=== PATIENT | female | born 1980 | race Caucasian/White ===

== ENCOUNTER 2016-11-06 18:32 | Emergency (ER) | payer BC ==
[2016-11-06 19:31] VITALS: BP 144/86
--- NOTE | 2016-11-06 19:46 | UC ---
Throat Pain/Nasal Dar HPI - HPI Summary HPI Summary: [address], PAIN WITH SWALLOWING AND BODY ACHES. SAW WHITE SPOTS ON HER TONSILS TODAY. PT IS . - History of Current Complaint Chief Complaint: UCRespiratory Stated Complaint: SORE THROAT Time Seen by Provider: 11/06/16 19:39 Hx Obtained From: Patient Hx Last Menstrual Period: PT STATES POSSIBILITY OF Onset/Duration: Gradual Onset, Lasting Days, Still Present Severity: Moderate Pain Intensity: 4 Pain Scale Used: 0-10 Numeric Cough: None Associated Signs & Symptoms: Positive: Negative - Allergies/Home Medications Allergies/Adverse Reactions: Allergies Allergy/AdvReac Type Severity Reaction Status Date / Time No Known Allergies Allergy Verified 11/06/16 19:31 Home Medications: Home Medications Ibuprofen TAB* [Advil TAB*] 600 mg PO PRN 11/06/16 [History] Loratadine [Claritin 10 MG CAP] 10 mg PO 11/06/16 [History] PMH/Surg Hx/FS Hx/Imm Hx Respiratory History: Asthma - Surgical History Surgical History: None - Family History Known Family History: Positive: None Negative: Hypertension - Social History Alcohol Use: None Substance Use Type: None Smoking Status (MU): Never Smoked Tobacco Have You Smoked in the Last Year: No - Immunization History Most Recent Influenza Vaccination: unknown Most Recent Tetanus Shot: 01/20/16 Most Recent Pneumonia Vaccination: has not received Review of Systems Constitutional: Chills ENT: Sore Throat Respiratory: Negative Cardiovascular: Negative Gastrointestinal: Negative Musculoskeletal: Myalgia All Other Systems Reviewed And Are Negative: Yes Physical Exam Triage Information Reviewed: Yes Appearance: Well-Appearing, No Pain Distress, Well-Nourished Vital Signs: Initial Vital Signs Temp 98.2 F 11/06/16 19:27 Pulse 136 11/06/16 19:27 Resp 16 11/06/16 19:27 BP 144/86 11/06/16 19:27 Pulse Ox 99 11/06/16 19:27 Vital Signs Reviewed: Yes Eyes: Positive: Conjunctiva Clear ENT: Positive: Hearing grossly normal, TMs normal, Tonsillar exudate. Negative : Pharyngeal erythema, Tonsillar swelling, Muffled/hoarse voice Neck: Positive: Supple, Tenderness @ - SPFL CERVICAL LAD, Enlarged Nodes @ - SPFL CERVICAL LAD Respiratory Exam: Normal Cardiovascular: Positive: Tachycardia Abdomen Description: Positive: Soft Musculoskeletal: Positive: No Edema Neurological: Positive: Alert Psychological: Positive: Age Appropriate Behavior Skin: Negative: rashes Diagnostics - Laboratory Diagnostic Studies Completed/Ordered: RAPID STREP NEGATIVE Throat Pain/Nasal Course/Dx - Differential Dx/Diagnosis Provider Diagnoses: ACUTE PHARYNGITIS Discharge - Discharge Plan Condition: Stable Disposition: HOME Patient Education Materials: Pharyngitis (ED) Referrals: Estrella Victoria MD [Primary Care Provider] - If Needed Additional Instructions: RAPID STREP NEGATIVE. LIKELY VIRAL INFECTION. REST, OTC MEDS FOR DISCOMFORT. STAY HYDRATED. FOLLOW-UP IF YOU ARE NOT IMPROVING EXPECTED.
== END 2016-11-06 20:29 | disposition home or self-care (01) ==
LOC: UCEAST 18:32
DX: J02.9 Acute pharyngitis, unspecified (principal); J45.909 Unspecified asthma, uncomplicated
CPT/HCPCS: 87651; 99211; G0463

== ENCOUNTER 2017-12-19 19:17 | Inpatient (IN) | payer BC ==
[2017-12-19 20:15] LABS: Hematocrit 42 % (35-47); Hemoglobin 14.4 g/dl (12.0-16.0); Mean Corpuscular HGB Conc 35 g/dl (31-36); Mean Corpuscular Hemoglobin 32 pg (27-31); Mean Corpuscular Volume 93 fL (80-97); Platelet Count 208 10^3/ul (150-450); Red Cell Distribution Width 13 % (10.5-15); White Blood Count 9.2 10^3/ul (3.5-10.8)
--- NOTE | 2017-12-19 20:17 | HP ---
General Information - Reason for Visit contractions / no leaking/gfm/ would like pain management - General Information Maternal Age: 37 Grav: 5 Para: 3 SAB: 1 IEA: 0 Estimated Due Date: 12/21/17 Determined By: LMP Maternal Blood Type and Rh: B Negative - Results this Serology/RPR Result: Non-Reactive Rubella Result: Immune HBsAg Result: Negative HIV Result: Negative GBS Culture Result: Negative Past Medical History Delivery History: Hx Uncomplicated Vaginal Delivery Pertinent Past Medical History: See Records Pertinent Past Surgical History: None Pertinent Family History: Non-Contributory - Antepartal Records Antepartal Records: Reviewed, Uncomplicated Review of Systems Constitutional: Uncomfortable CV Complaint: No Respiratory: Shortness of Breath: No Gastrointestinal: No Nausea/Vomiting Genitourinary: No Bleeding, No Leaking Fluid Musculoskeletal: Contractions Neurological: No Headache Movement: Normal Exam Allergies/Adverse Reactions: Allergies No Known Allergies Allergy (Verified 12/10/17 15:31) - Measurements Height: 5 ft 3 in Weight: 219 lb Weight in lbs: [id number] Body Mass Index (BMI): 38.7 Pre- Weight: 200 lb Weight Gained This : 19 lbs and 0 ozs - Exam Breast: Breast Exam Deferred Extremities: No Edema Heart: Normal Rhythm/Heart Sounds HEENT: No Significant Findings Lungs: Clear Bilaterally Rectal: Rectal Exam Deferred Reflexes: DTR 2+ Targeted Exam Findings Cervical Exam: 4cm Effacement: 80% Station: -2 Presenting Part: Vertex Membrane Status: Intact - per nursing EFM Findings - External Monitor Findings Baseline Heart Rate: 130 External Monitor Findings: Variability Moderate Contractions: Regular Assessment/Plan - Assessment in labor / expectant - Plan Plan: Admit - Anticipate Vaginal Delivery
[2017-12-19] MEDS ORDERED: OBEPIDURAL* 250 ML EPIDURAL ONE (20:34)
[2017-12-19] MEDS ORDERED: EPHEDrine (Pressors)* 50 MG/ML VIAL IV PUSH PRN ×2 (21:27)
[2017-12-19] MEDS ORDERED: Phenylephrine IV* 40 MCG/ML 10 ML SYRINGE IV PUSH PRN ×2 (21:27)
[2017-12-19] MEDS ORDERED: Sodium Citrate/Citric Acid* 15 ML UDC PO PRN (21:27)
[2017-12-19] MEDS ORDERED: Famotidine IV* 10 MG/ML 2 ML (20 mg) IV PRN (21:27)
[2017-12-19] MEDS ORDERED: Hetastarch 6% in NS* 200 ML IV PRN (21:27)
[2017-12-19] MEDS ORDERED: OBEPIDURAL* 250 ML EPIDURAL SCH (22:00)
[2017-12-20] MEDS ORDERED: RHO D Immune Globulin (HUMAN)* 300 MCG = 1,500 I.U. INJ IM ONE (00:44)
[2017-12-20] MEDS ORDERED: Witch Hazel PAD* JAR TOPICAL PRN (00:44)
[2017-12-20] MEDS ORDERED: Dibucaine 1% 28.35 GM TUBE PR PRN (00:44)
[2017-12-20] MEDS ORDERED: Glycerin ADULT SUPP PR PRN (00:44)
[2017-12-20] MEDS ORDERED: Erythromycin OPTH OINT* APPLIC OINT BOTH EYES ONE (00:45)
[2017-12-20] MEDS ORDERED: Glucose ORAL NICU* 30 ML TUBE BUCCAL PRN (00:45)
[2017-12-20] MEDS ORDERED: Hepatitis B Vac PF(ENGERIX-B)* 10 MCG/0.5 ML ML SYRINGE - PEDIATRIC IM ONE (00:45)
[2017-12-20] MEDS ORDERED: Phytonadione NEONATE INJ* 1 MG/0.5 ML AMP IM ONE (00:45)
[2017-12-20] MEDS ORDERED: Lidocaine 2.5%/Prilocain 2.5%* 5 GM TUBE TOPICAL PRN (00:45)
[2017-12-20] MEDS: Ibuprofen TAB* 600 MG PO PRN ×3 (03:12→19:18)
[2017-12-20] MEDS: Acetaminophen TAB* 325 MG PO PRN ×2 (07:05→11:58)
[2017-12-20] MEDS ORDERED: Simethicone TAB* 80 MG TAB.CHEW PO SCH (08:30)
[2017-12-20] MEDS: Docusate CAP* 100 MG PO SCH ×2 (08:48→14:20)
[2017-12-21] MEDS: Docusate CAP* 100 MG PO SCH ×2 (02:00→08:09)
[2017-12-21] MEDS: Ibuprofen TAB* 600 MG PO PRN ×2 (02:00→08:09)
[2017-12-21 06:55] LABS: ABS Basophils 0 10^3/ul (0-0.2); ABS Eosinophils 0.2 10^3/ul (0-0.6); ABS Lymphocytes 2.1 10^3/ul (1.0-4.8); ABS Monocytes 0.5 10^3/ul (0-0.8); ABS Neutrophils 4.8 10^3/ul (1.5-7.7); ABS Nucleated RBC 0 10^3/ul; Eosinophil % 2.1 % (0-6); Hematocrit 37 % (35-47); Hemoglobin 13.1 g/dl (12.0-16.0); Lymphocyte % 27.5 % (25-47); Mean Corpuscular HGB Conc 36 g/dl (31-36); Mean Corpuscular Hemoglobin 33 pg (27-31); Mean Corpuscular Volume 92 fL (80-97); Mean Platelet Volume 7.8 um3 (7.4-10.4); Nucleated Red Blood Cells % 0.1; Platelet Count 170 10^3/ul (150-450); Red Cell Distribution Width 13 % (10.5-15); White Blood Count 7.5 10^3/ul (3.5-10.8)
[2017-12-21 08:36] VITALS: BP 122/68
[2017-12-21] MEDS ORDERED: Ferrous Gluconate TAB* 324 MG TAB PO SCH (09:00)
== END 2017-12-21 12:56 | disposition home or self-care (01) | DRG 560 ==
LOC: MCHOBOUT 19:17 → MCHOB 19:45
PROVIDERS: ADMIT Obstetrics & Gynecology; ATTEND Obstetrics & Gynecology
PROC: 10E0XZZ Delivery of Products of Conception, External Approach (ICD-10-PCS; principal; 2017-12-20)
PROC: 10907ZC Drainage of Amniotic Fluid, Therapeutic from Products of Conception, Via Natural or Artificial Opening (ICD-10-PCS; 2017-12-20)
DX: O99.52 Diseases of the respiratory system complicating childbirth (principal); J45.909 Unspecified asthma, uncomplicated; O77.0 Labor and delivery complicated by meconium in amniotic fluid; Z3A.39 39 weeks gestation of pregnancy; Z37.0 Single live birth
CPT/HCPCS: 36415; 85025; 85027; 85461; 86850; 86900; 86901; A9270-GY; J2790

== ENCOUNTER 2017-12-21 23:25 | Emergency (ER) | payer BC ==
[2017-12-21] MEDS ORDERED: Metoclopramide IV* 5 MG/ML 2 ML VIAL IV ONE (23:54)
[2017-12-21] MEDS ORDERED: NS 0.9% 1000 ML* 1,000 ML IV ONE (23:54)
[2017-12-21] MEDS ORDERED: Ketorolac INJ* 30 MG/ML 1 ML VIAL IV ONE (23:54)
--- NOTE | 2017-12-22 00:03 | ED ---
HPI Chest Pain - HPI Summary HPI Summary: This is scribe Simone Rizo documenting for attending Eloy Medina MD. This patient is a 37 year old F presenting to [facility] with a chief complaint of chest pressure since 15:00 today. Patient says the pain is still present in the front of her chest and a little in the back. She says it doesnt feel natural when she breathes in. The patient rates the pain 2/10 in severity. Patient reports N/V/D (around 17:00). Patient denies dyspnea and fever. Patient was discharged from OB today around 14:00. She gave vaginal on 12/20/2017 with no complications. Patient alternated between taking Motrin and Tylenol while at the OB yesterday. She was given nothing for pain at home and has been breast feeding her baby. I, Dr. Medina, personally performed the services described in this documentation as scribed in my presence and it is both accurate and complete. - History of Current Complaint Chief Complaint: EDNauseaVomitDiarrh Time Seen by Provider: 12/21/17 23:32 Hx Obtained From: Patient Onset/Duration: Started Hours Ago - Since 15:00 on 12/21/2017 Time of Onset: 15:00 Timing: Constant Initial Severity: Mild Current Severity: Mild Pain Intensity: 2 Pain Scale Used: 0-10 Numeric Chest Pain Radiates: Yes Chest Pain Radiates To:: Back Character: Pressure/Squeezing - Pressure Associated Signs and Symptoms: Positive: Nausea - 17:00 on 12/21/2017, Vomiting - 17:00 on 12/21/2017, Other: - Diarrhea 17:00 on 12/21/2017. She doesnt feel natural when she breathes in. - Allergy/Home Medications Allergies/Adverse Reactions: Allergies Allergy/AdvReac Type Severity Reaction Status Date / Time No Known Allergies Allergy Verified 12/10/17 15:31 PMH/Surg Hx/FS Hx/Imm Hx Endocrine/Hematology History: Denies: Hx Diabetes, Hx Thyroid Disease Cardiovascular History: Denies: Hx Hypertension Respiratory History: Reports: Hx Asthma History: Denies: Hx Kidney Infection, Other Problems/Disorders Psychiatric History: Denies: Hx Anxiety, Hx Depression, Other Psychiatric Issues/Disorders - Immunization History Date of Tetanus Vaccine: utd Date of Influenza Vaccine: fall 2016 Infectious Disease History: No Infectious Disease History: Denies: Traveled Outside the [place] in Last 30 Days - Family History Known Family History: Negative: Hypertension - Social History Occupation: Employed Full-time - [employer] Lives: With Family Alcohol Use: None Hx Substance Use: No Substance Use Type: Reports: None Hx Tobacco Use: No Smoking Status (MU): Never Smoked Tobacco Have You Smoked in the Last Year: No Review of Systems Positive: Chest Pain - Chest pressure. Positive: Other - It doesnt feel natural when she breathes in Positive: Vomiting - Around 17:00 on 12/21/2017, Diarrhea - Around 17:00 on 12/2017, Nausea - Around 17:00 on 12/21/2017 All Other Systems Reviewed And Are Negative: Yes Physical Exam - Summary Physical Exam Summary: VITAL SIGNS: Reviewed. GENERAL: Patient is a well-developed and nourished FEMALE who is lying comfortable in the stretcher. Patient is not in any acute respiratory distress. HEAD AND FACE: No signs of trauma. No ecchymosis, hematomas or skull depressions. No sinus tenderness. EYES: PERRLA, EOMI x 2, No injected conjunctiva, no nystagmus. EARS: Hearing grossly intact. Ear canals and tympanic membranes are within normal limits. MOUTH: Oropharynx within normal limits. NECK: Supple, trachea is midline, no adenopathy, no JVD, no carotid bruit, no c- spine tenderness, neck with full ROM. CHEST: Symmetric, no tenderness at palpation LUNGS: Clear to auscultation bilaterally. No wheezing or crackles. CVS: Regular rate and rhythm, S1 and S2 present, no murmurs or gallops appreciated. ABDOMEN: Soft, non-tender. No signs of distention. No rebound no guarding, and no masses palpated. Bowel sounds are normal. EXTREMITIES: FROM in all major joints, no edema, no cyanosis or clubbing. NEURO: Alert and oriented x 3. No acute neurological deficits. Speech is normal and follows commands. SKIN: Dry and warm Triage Information Reviewed: Yes Vital Signs On Initial Exam: Initial Vitals Temp Pulse Resp BP Pulse Ox 98.6 F 77 20 131/74 97 12/21/17 23:27 12/21/17 23:27 12/21/17 23:27 12/21/17 23:27 12/21/17 23:27 Vital Signs Reviewed: Yes Diagnostics - Vital Signs Vital Signs Temp Pulse Resp BP Pulse Ox 12/21/17 23:27 98.6 F 77 20 131/74 97 - Laboratory Result Diagrams: 12/22/17 00:05 12/22/17 00:05 Lab Statement: Any lab studies that have been ordered have been reviewed, and results considered in the medical decision making process. - Radiology Chest X-Ray Radiology Interpretation Completed By: ED Physician - No acute process. Read 0: 30 by physician. Pending offical report. - EKG 23:41 Cardiac Rate: NL - 72 BPM EKG Rhythm: Sinus Rhythm EKG Interpretation: Normal axis. Normal interval. No ischemic changes. Chest Pain Course/Dx - Course Assessment/Plan: Patient presented with chest pressure after giving vaginal yesterday. The bloodwork and Chest X-Ray were normal. Patient started feeling better. Sending patient home with medications. - Diagnoses Provider Diagnoses: Gastroenteritis Discharge - Sign-Out/Discharge Documenting (check all that apply): Patient Departure - D/C - Discharge Plan Condition: Stable Disposition: HOME Prescriptions: Ibuprofen TAB* [Motrin TAB* 800 MG] 800 mg PO Q6H PRN #30 tab PRN Reason: Pain Metoclopramide TAB* [Reglan TAB*] 10 mg PO Q6H PRN #20 tab PRN Reason: Nausea/Vomiting Patient Education Materials: Gastroenteritis (ED) Referrals: Key Chan NP [Primary Care Provider] - (Follow up with your Primary Care Provider in 1-2 Days.) Seda Newman MD [Medical Doctor] - (Follow up with [facility] in 1-2 days.) Additional Instructions: RETURN TO THE EMERGENCY DEPARTMENT FOR CHANGING OR WORSENING SYMPTOMS. FOLLOW UP WITH PCP IN 1-2 DAYS. FOLLOW UP WITH [facility] IN 1-2 DAYS.
[2017-12-22 00:11] LABS: ABS Basophils 0 10^3/ul (0-0.2); ABS Eosinophils 0 10^3/ul (0-0.6); ABS Monocytes 0.4 10^3/ul (0-0.8); ABS Nucleated RBC 0 10^3/ul; Eosinophil % 0.2 % (0-6); Hematocrit 38 % (35-47); Hemoglobin 13.5 g/dl (12.0-16.0); Lymphocyte % 10.9 % (25-47); Mean Corpuscular HGB Conc 35 g/dl (31-36); Mean Corpuscular Hemoglobin 32 pg (27-31); Mean Corpuscular Volume 92 fL (80-97); Mean Platelet Volume 7.1 um3 (7.4-10.4); Nucleated Red Blood Cells % 0; Platelet Count 219 10^3/ul (150-450); Red Blood Count 4.16 10^6/ul (4.00-5.40); Red Cell Distribution Width 13 % (10.5-15); White Blood Count 9.4 10^3/ul (3.5-10.8)
[2017-12-22 00:29] LABS: EGFR Non-African American 125.1 (>60)
[2017-12-22 00:58] VITALS: BP 113/67
--- NOTE | 2017-12-22 07:13 | RAD ---
INDICATION: Chest pain COMPARISON: None. TECHNIQUE: Single AP portable view of the chest was obtained. FINDINGS: Image quality is compromised due to the relative inferiority of a portable chest x-ray. The heart and mediastinum exhibit normal size and contour. The lungs are grossly clear. There is no evidence of a large pleural effusion. Visualized bones are normal for the patient's age. IMPRESSION: No radiographic evidence for acute cardiopulmonary abnormality on this portable chest x-ray. R0
== END 2017-12-22 00:58 | disposition home or self-care (01) ==
LOC: ED 23:25
DX: K52.9 Noninfective gastroenteritis and colitis, unspecified (principal)
CPT/HCPCS: 36415; 71045; 80053; 82150; 83690; 83735; 84484; 85025; 86140; 96374; 96375; 99283; J1885; J2765

== ENCOUNTER 2018-06-17 07:13 | Emergency (ER) | payer BC ==
[2018-06-17 07:28] VITALS: BP 143/86
--- NOTE | 2018-06-17 07:28 | UC ---
Abdominal Pain Female HPI - HPI Summary HPI Summary: 38 YO FEMALE WITH C/O 3 EPISODES OF DIARRHEA over the last 3 days. Also, intermittent vomiting. Denies fever or abdominal pain. Suffers from anxiety and panic attacks. Started on Zoloft after diarrhea started. No hx of gallbladder disease or cyclic vomiting syndrome. 5 Para 4. Healthy delivery 6 months ago. Baby here to be examined with congestion. - History of Current Complaint Stated Complaint: VOMITTING, DIARRHEA Time Seen by Provider: 06/17/18 07:25 Hx Obtained From: Patient ?: No Allergies/Adverse Reactions: Allergies Allergy/AdvReac Type Severity Reaction Status Date / Time No Known Allergies Allergy Verified 06/17/18 07:27 Home Medications: Home Medications Ascorbic Acid/Vitamin E/Biotin [Hair Skin Nails-Biotin Gummies] 1 chw PO DAILY 06/17/18 [History Confirmed 06/17/18] Iron 90 mg PO DAILY 06/17/18 [History Confirmed 06/17/18] Loratadine [Claritin 10 MG CAP] 10 mg PO DAILY 06/17/18 [History Confirmed 06/17] Sertraline* [Zoloft*] 25 mg PO DAILY 06/17/18 [History Confirmed 06/17/18] PMH/Surg Hx/FS Hx/Imm Hx - Additional Past Medical History Additional PMH: no hx of HTN. Previously Healthy: Yes - Surgical History Surgical History: None - Family History Known Family History: Positive: None Negative: Hypertension - Social History Occupation: Employed Full-time - teacher Lives: With Family - 4 children Alcohol Use: None Substance Use Type: None Smoking Status (MU): Never Smoked Tobacco Have You Smoked in the Last Year: No - Immunization History Most Recent Influenza Vaccination: unknown Most Recent Tetanus Shot: 01/20/16 Most Recent Pneumonia Vaccination: has not received Review of Systems All Other Systems Reviewed And Are Negative: Yes Constitutional: Positive: Negative Skin: Positive: Negative Eyes: Positive: Negative, Eye Redness - right eye for 2 days ENT: Positive: Negative Respiratory: Positive: Negative. Negative: Shortness Of Breath, Cough Cardiovascular: Positive: Negative. Negative: Palpitations, Chest Pain Gastrointestinal: Positive: Negative, Vomiting - ate pizza last night; no abd pain, Diarrhea - 3 times roughly morning and night. Negative: Abdominal Pain, Nausea Genitourinary: Positive: Negative Motor: Positive: Negative Neurovascular: Positive: Negative Musculoskeletal: Positive: Negative Neurological: Positive: Negative Psychological: Positive: Negative Is Patient Immunocompromised?: No Physical Exam Triage Information Reviewed: Yes Appearance: Well-Appearing, No Pain Distress Vital Signs Reviewed: Yes Eye Exam: Normal ENT Exam: Normal Dental Exam: Normal Neck exam: Normal Neck: Positive: 1 Respiratory Exam: Normal Respiratory: Positive: Chest non-tender, Lungs clear, Normal breath sounds Cardiovascular Exam: Normal Cardiovascular: Positive: RRR, No Murmur, Pulses Normal Abdominal Exam: Normal Abdomen Description: Positive: Nontender, No Organomegaly, Soft, Other: - mild diffuse discomfort with palpation mostly at left upper quadrant; bowel sounds active. Negative: CVA Tenderness (R), CVA Tenderness (L), Distended, Guarding, McBurney's Point Tenderness, Peritoneal Signs, Splenomegaly Musculoskeletal Exam: Normal Neurological Exam: Normal Psychological Exam: Normal Skin Exam: Normal Skin: Negative: Rashes Abd Pain Female Course/Dx - Course Course Of Treatment: 38 yo female with complaint of 3 episodes of diarrhea and 3 episodes of mild vomiting. No evidence of food poisoning. Patient is anxious. Probably viral gastroenteritis. Could be IBS. Note is made of injected, mild, right eye. Dx is gastroenteritis and conjunctivitis. MEDICATIONS REVIEWED. BLOOD PRESSURE STATUES: DISCUSSED. Patient is urgent/ emergent causing BP elevation. - Differential Dx/Diagnosis Differential Diagnosis: Appendicitis, Constipation, Diverticulitis, Gall Bladder Disease, Other - irritable bowel; anxiety Provider Diagnosis: Gastroenteritis, Conjunctivitis Discharge - Sign-Out/Discharge Documenting (check all that apply): Patient Departure All imaging exams completed and their final reports reviewed: No Studies - Discharge Plan Condition: Stable Disposition: HOME Prescriptions: Erythromycin OPTH OINT* [Erythromycin 0.5% OPTH OINT*] 1 applic RIGHT EYE TID # 1 ophth.oint MDD every 6 hours Patient Education Materials: Gastroenteritis (DC), Conjunctivitis (ED) Referrals: Micah Espinosa MD [Primary Care Provider] - Additional Instructions: WE DISCUSSED: PLEASE SEEK CARE AT THE EMERGENCY DEPARTMENT IF SYMPTOMS WORSEN OR IF NEW SYMPTOMS DEVELOP. FOLLOW UP WITH YOUR PRIMARY CARE PHYSICIAN IF CONDITION CONTINUES BEYOND 3 DAYS WITHOUT IMPROVEMENT. YOUR DIAGNOSIS IS: GASTROENTERITIS; CONJUNCTIVITIS, RIGHT EYE YOUR PRESCRIPTION RECOMMENDATION IS: erythromycin eye ointment: USE TO RIGHT EYE 3 TIMES A DAY; USE ONCE AT NIGHT TO LEFT EYE TO STOP IT FROM GETTING WORSE. USE MEDICATION FOR 5-7 DAYS; ONE DAY AFTER CONDITION HAS RESOLVED. OTHER INSTRUCTIONS: Keep diet simple for the next 2 days; no fried foods or dairy or meat. Recheck with your doctor next week. If this continues, you will need further evaluation. - Billing Disposition and Condition Condition: STABLE Disposition: Home
== END 2018-06-17 08:15 | disposition home or self-care (01) ==
LOC: UCEAST 07:13
DX: K52.9 Noninfective gastroenteritis and colitis, unspecified (principal); H10.31 Unspecified acute conjunctivitis, right eye
CPT/HCPCS: 99212; G0463